=== PATIENT | male | born 1955 | race African-American/Black ===

== ENCOUNTER 2023-06-14 15:39 | Emergency (ER) | payer OTHER ==
[2023-06-14 16:02] VITALS: BP 142/75; PULSE 87; RESP 18; TEMP 98.7; BMI 32.8
[2023-06-14 17:51] LABS: BASO % 0.6 % (0-2.0); EOS % 3.4 % (0-4.5); HEMATOCRIT 42.4 % (35.4-49); HEMOGLOBIN 14.5 GM/dL (11.7-16.9); LYMPH % 24.5 % (8-40); MCH 30.6 pg (25.7-33.7); MCHC 34.2 g/dl (32.0-35.9); MEAN CELL VOLUME 89.6 fl (80-96); MONO % 5.9 % (3.8-10.2); NEUT % 65.6 % (42.8-82.8); PLATELET COUNT 238 10^3/uL (134-434); RBC 4.73 M/mm3 (4.00-5.60); RDW 13.3 % (11.9-15.9); WHITE BLOOD COUNT 9.1 K/mm3 (4.0-10.0)
[2023-06-14 18:18] LABS: POTASSIUM 4.3 mmol/L (3.5-5.1)
[2023-06-14 18:20] LABS: ALBUMIN 3.8 g/dl (3.4-5.0); CALCIUM 9.2 mg/dL (8.5-10.1)
[2023-06-14 18:21] LABS: BLOOD UREA NITROGEN 10.6 mg/dL (7-18)
[2023-06-14 18:23] LABS: CREATININE 1.1 mg/dL (0.55-1.3)
[2023-06-14 18:25] LABS: BILIRUBIN,TOTAL 0.5 mg/dL (0.2-1); TOT PROT 7.3 g/dl (6.4-8.2)
== END 2023-06-14 18:41 | disposition home or self-care (01) ==
LOC: JERFT 15:39 → JER 15:39 → JERFT 18:41
DX: R10.33 Periumbilical pain (principal); R10.32 Left lower quadrant pain; K59.00 Constipation, unspecified
CPT/HCPCS: 36415; 74019-TC-FY; 76705-TC; 80053; 85025; 99285-25